=== PATIENT | male | born 1960 | race Caucasian/White ===

== ENCOUNTER 2020-09-07 18:55 | Emergency (ER) | payer OTHER ==
[~2020-09-07] VITALS: Ht 180.3 cm; Wt 112.5 kg
[2020-09-07] MEDS ORDERED: METFORMIN HYDR500 MG PO (20:07)
[2020-09-07] MEDS ORDERED: GABAPENTIN400 MG PO (20:07)
[2020-09-07] MEDS ORDERED: ASPIRIN ADULT L81 M2 PO (20:07)
[2020-09-07 20:08] LABS: BASO # 0.1 10*3/uL (0.0-0.1); BASO % 0.3 % (0.0-1.0); EOS % 0.1 % (1.0-4.0); HEMATOCRIT 38.6 % (42.0-52.0); LYMPH # 0.9 10*3/uL (1.3-4.4); LYMPH % 5.8 % (27.0-41.0); MEAN CORPUSCULAR HGB 31.5 pg (27.0-31.0); MEAN CORPUSCULAR HGB CONC 32.1 g/dl (33.0-37.0); MEAN PLATELET VOLUME 9.9 fl (9.6-12.3); MONO # 1.1 10*3/uL (0.1-1.0); MONO % 7.4 % (3.0-9.0); NEUT % 85.9 % (47.0-73.0); PLATELET COUNT AUTOMATED 303 10*3/uL (130-400); RED BLOOD COUNT 3.94 10*6/uL (4.50-5.90); RED CELL DISTRI WIDTH 12.7 % (0-14.5); WHITE BLOOD COUNT 15.1 10*3/uL (4.8-10.8)
[2020-09-07] MEDS ORDERED: PANTOPRAZOLE SO40 MG PO (20:08)
[2020-09-07] MEDS ORDERED: TRULICITY0.75 MG/0. SC (20:08)
[2020-09-07] MEDS ORDERED: AMLODIPINE BESYL5 MG PO (20:08)
[2020-09-07] MEDS ORDERED: FAMOTIDINE40 MG PO (20:09)
[2020-09-07] MEDS ORDERED: TRESIBA FL100 UNIT/1 SC (20:09)
[2020-09-07] MEDS ORDERED: BACLOFEN5 MG PO (20:10)
[2020-09-07] MEDS ORDERED: ENALAPRIL10 MG PO (20:10)
[2020-09-07] MEDS ORDERED: ATORVASTATIN CA40 M1 PO (20:10)
[2020-09-07 20:24] LABS: ALBUMIN 3.5 gm/dl (3.1-4.5); CREATININE 1.98 mg/dL (0.70-1.30); POTASSIUM 5.2 mmol/L (3.5-5.1); TOTAL PROTEIN 7.3 gm/dL (6.4-8.2)
[2020-09-07 21:35] LABS: BACTERIA TRACE; BILIRUBIN Negative (Negative); CLARITY Clear (Clear); COLOR Yellow (Yellow); GLUCOSE Negative (Negative); KETONE Negative (Negative); RBC 0-2 rbc/hpf (0-2); WBC 0-2 wbc/hpf (0-5)
[2020-09-07 21:36] LABS: BLOOD Negative (Negative); LEUKO ESTERASE Negative (Negative); NITRITE Negative (Negative); PH 5.5 (4.5-8.0); SPECIFIC GRAVITY 1.025 (1.001-1.030); UROBILINOGEN 0.2 E.U./dl (0.0-1.0)
== END 2020-09-08 01:14 | disposition home or self-care (01) ==
LOC: ED 18:55
PROVIDERS: Emergency Medicine
DX: K52.9 Noninfective gastroenteritis and colitis, unspecified (principal); E86.0 Dehydration; N17.9 Acute kidney failure, unspecified; Z79.82 Long term (current) use of aspirin; Z79.899 Other long term (current) drug therapy